=== PATIENT | female | born 1965 | race Caucasian/White ===

== ENCOUNTER 2017-10-01 18:44 | Emergency (ER) | payer MEDICAID ==
[~2017-10-01] VITALS: Ht 157.5 cm; Wt 100.3 kg
[2017-10-01] MEDS ORDERED: SIMV20TA5 PO (19:57)
[2017-10-01] MEDS ORDERED: NITR100C PO (19:57)
[2017-10-01] MEDS ORDERED: TRAZ-146 PO (19:57)
[2017-10-01] MEDS ORDERED: SYN0.088T PO (19:57)
[2017-10-01 19:58] LABS: CLARITY,URINE Turbid (Clear); COLOR,URINE Yellow (Yellow); GLUCOSE, URINE Negative (Neg); KETONES,URINE Negative (Neg); LEUKOCYTE ESTERASE ,URINE Negative (Neg); NITRITES, URINE Negative (Neg); OCCULT BLOOD,URINE Moderate (Neg); PROTEIN,URINE Negative (Neg)
[2017-10-01 20:07] LABS: BASOPHILS # (AUTO) 0.1 X10'3 (0-0.2); BASOPHILS % (AUTO) 0.6 % (0-1); EOSINOPHILS # (AUTO) 0.3 X10'3 (0-0.9); EOSINOPHILS % (AUTO) 2.6 % (0-6); HEMATOCRIT 39.9 % (35.0-45.0); HEMOGLOBIN 13.6 g/dl (12.0-16.0); LYMPHOCYTES # (AUTO) 2.8 X10'3 (1.1-4.8); LYMPHOCYTES % (AUTO) 23.6 % (21-51); MEAN CORPUSCULAR HEMOGLOBIN 31.3 PG (27.0-31.0); MEAN CORPUSCULAR HGB CONC 34.1 % (33.0-36.5); MEAN CORPUSCULAR VOLUME 91.8 FL (78-98); MEAN PLATELET VOLUME 8.1 FL (7.4-10.4); MONOCYTES # (AUTO) 0.9 X10'3 (0-0.9); MONOCYTES % (AUTO) 7.4 % (2-12); NEUTROPHILS # (AUTO) 7.8 X10'3 (1.8-7.7); NEUTROPHILS % (AUTO) 65.8 % (42-75); PLATELET COUNT 248 X10'3 (140-440); RED BLOOD COUNT 4.34 X10'6 (4.20-5.60); RED CELL DISTRIBUTION WIDTH 12.6 % (11.5-14.5); WHITE BLOOD COUNT 11.8 X10'3 (4.5-11.0)
[2017-10-01 20:09] LABS: UA COLLECTION TYPE CLN CATCH MIDSTREAM
[2017-10-01 20:10] LABS: BACTERIA,URINE FEW /HPF (Neg); SQUAMOUS EPITHELIAL CELL,UR FEW /LPF (FEW); WBC,URINE NONE SEEN /HPF (0-4)
[2017-10-01 20:13] LABS: AMORPHOUS PHOSPHATES 3+
[2017-10-01 20:15] LABS: INR 0.9 INR; PROTHROMBIN TIME 9.5 SECONDS (9.0-12.0)
[2017-10-01 20:17] LABS: OCCULT BLOOD STOOL NEGATIVE (Neg)
[2017-10-01] MEDS ORDERED: normal saline 1000ML IV soln IVB ONE (20:30)
[2017-10-01] MEDS ORDERED: ondansetron/PF 4mg/2ml inj IV ONE (20:30)
[2017-10-01] MEDS ORDERED: morphine 4 MG/ML inj SYRINge IV ONE (20:30)
[2017-10-01] MEDS ORDERED: ketorolac trometh. 30mg/ml inj. IV ONE (20:30)
[2017-10-01 20:31] LABS: ALANINE AMINOTRANSFERASE 24 U/L (12-78); ALBUMIN 3.9 G/DL (3.4-5.0); ALBUMIN/GLOBULIN RATIO 1.2 (1.1-1.5); AMYLASE 55 U/L (25-115); ANION GAP 10 (8-16); ASPARTATE AMINO TRANSFERASE 17 U/L (10-37); BILIRUBIN,TOTAL 0.4 MG/DL (0.1-1.0); BLOOD UREA NITROGEN 15 MG/DL (7-18); BUN/CREATININE RATIO 16.5 (6.6-38.0); CALCIUM 9.2 MG/DL (8.5-10.1); CHLORIDE 108 MMOL/L (99-107); CREATININE 0.91 MG/DL (0.40-0.90); GLUCOSE 120 MG/DL (70-104); LIPASE 206 U/L (73-393); POTASSIUM 3.3 MMOL/L (3.5-5.1); SODIUM 143 MMOL/L (135-145); TOTAL CARBON DIOXIDE 24.7 MMOL/L (24-32); TOTAL PROTEIN 7.1 G/DL (6.4-8.2); eGFR 65 ML/MIN
[2017-10-01 20:33] LABS: ALKALINE PHOSPHATASE 75 IU/L (46-116)
[2017-10-01] MEDS ORDERED: diphenhydrAMINE 50 mg/ml inj IV ONE (20:50)
[2017-10-01] MEDS ORDERED: diphenhydrAMINE 50 mg/ml inj ONE (20:51)
[2017-10-01] MEDS ORDERED: HYDROmorphone 1 mg/ml syringe IV ONE (22:00)
[2017-10-01] MEDS ORDERED: fentaNYL/PF 50MCG/1 ML 2ML syringe IV ONE (22:05)
[2017-10-01] MEDS ORDERED: HYDR-3965 PO (22:54)
[2017-10-01] MEDS ORDERED: IBUP-1984 PO (22:54)
[2017-10-01 23:08] VITALS: BP 148/78
== END 2017-10-01 23:10 | disposition home or self-care (01) ==
LOC: ER 18:45
DX: N23 Unspecified renal colic (principal); F17.200 Nicotine dependence, unspecified, uncomplicated; Z87.442 Personal history of urinary calculi; Z88.0 Allergy status to penicillin; Z88.5 Allergy status to narcotic agent; Z79.899 Other long term (current) drug therapy
CPT/HCPCS: 36415; 74176; 80053; 81001; 82150; 82272; 83690; 85025; 85610; 96361; 96374; 96375; 99285; J1200; J1885; J2270; J2405; J3010; J7030

== ENCOUNTER 2019-01-28 11:59 | Emergency (ER) | payer MEDICAID ==
[~2019-01-28] VITALS: Ht 157.5 cm; Wt 88.6 kg
[~2019-01-28 11:59] MED LIST: NITR100C PO; SIMV20TA5 PO; SYN0.088T PO; TRAZ-219 PO
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
[2019-01-28] MEDS ORDERED: CYCL-1 PO (14:12)
[2019-01-28 14:21] VITALS: BP 133/67
== END 2019-01-28 14:26 | disposition home or self-care (01) ==
LOC: ER 12:00
DX: S39.012A Strain of muscle, fascia and tendon of lower back, initial encounter (principal); R51 Headache; F17.200 Nicotine dependence, unspecified, uncomplicated; Z87.442 Personal history of urinary calculi; Z98.890 Other specified postprocedural states; Z88.0 Allergy status to penicillin; Z88.5 Allergy status to narcotic agent; Z79.899 Other long term (current) drug therapy; V49.9XXA Car occupant (driver) (passenger) injured in unspecified traffic accident, initial encounter; Y93.89 Activity, other specified; Y92.488 Other paved roadways as the place of occurrence of the external cause; Y99.8 Other external cause status
CPT/HCPCS: 99283

== ENCOUNTER 2022-10-26 14:38 | Emergency (ER) | payer MEDICAID ==
[~2022-10-26] VITALS: Ht 157.5 cm; Wt 100.0 kg
[~2022-10-26 14:38] MED LIST changes: +CYCL-1 PO; +SIMV-42 PO; -SIMV20TA5 PO; -TRAZ-219 PO; +TRAZ-256 PO
[2022-10-26 15:22] LABS: URINE HCG NEGATIVE (NEG)
[2022-10-26 15:40] LABS: BASOPHILS # (AUTO) 0.1 X10'3 (0-0.2); BASOPHILS % (AUTO) 0.8 % (0-1); EOSINOPHILS # (AUTO) 0.1 X10'3 (0-0.9); EOSINOPHILS % (AUTO) 1.1 % (0-6); HEMOGLOBIN 13.4 g/dl (12.0-16.0); LYMPHOCYTES # (AUTO) 2.2 X10'3 (1.1-4.8); LYMPHOCYTES % (AUTO) 30.2 % (21-51); MEAN CORPUSCULAR HEMOGLOBIN 31.6 PG (27.0-31.0); MEAN CORPUSCULAR HGB CONC 33.6 g/dL (33.0-36.5); MEAN CORPUSCULAR VOLUME 94.3 FL (78-98); MEAN PLATELET VOLUME 7.6 FL (7.4-10.4); MONOCYTES # (AUTO) 0.8 X10'3 (0-0.9); MONOCYTES % (AUTO) 10.9 % (2-12); NEUTROPHILS # (AUTO) 4.2 X10'3 (1.8-7.7); PLATELET COUNT 295 X10'3 (140-440); RED BLOOD COUNT 4.25 X10'6 (4.20-5.60); RED CELL DISTRIBUTION WIDTH 12.9 % (11.5-14.5); WHITE BLOOD COUNT 7.3 X10'3 (4.5-11.0)
[2022-10-26] MEDS ORDERED: ondansetron 4mg rapidly disintigrating tab PO ONE (16:05)
[2022-10-26] MEDS ORDERED: oxyCODONE/APAP 10/325mg tablet PO ONE (16:05)
[2022-10-26 16:09] LABS: ALANINE AMINOTRANSFERASE 16 U/L (12-78); ALBUMIN 3.7 G/DL (3.4-5.0); ALBUMIN/GLOBULIN RATIO 1.3 (1.1-1.5); ALKALINE PHOSPHATASE 89 IU/L (46-116); ANION GAP 12 (8-16); ASPARTATE AMINO TRANSFERASE 12 U/L (10-37); BILIRUBIN,TOTAL 0.4 MG/DL (0.1-1.0); BLOOD UREA NITROGEN 10 MG/DL (7-18); BUN/CREATININE RATIO 10.4 (10.0-20.0); CALCIUM 8.9 MG/DL (8.5-10.1); CHLORIDE 109 MMOL/L (99-107); CREATININE 0.96 MG/DL (0.40-0.90); GLUCOSE 135 MG/DL (70-104); LIPASE 128 U/L (73-393); POTASSIUM 3.4 MMOL/L (3.5-5.1); SODIUM 143 MMOL/L (135-145); TOTAL CARBON DIOXIDE 21.7 MMOL/L (24-32); TOTAL PROTEIN 6.6 G/DL (6.4-8.2); eGFR 60 ML/MIN
[2022-10-26] MEDS ORDERED: potassium Cl 20 mEq SR tablet PO ONE (16:55)
[2022-10-26] MEDS ORDERED: iohexol 300mg/ml 100ml inj. ONE (17:11)
[2022-10-26] MEDS ORDERED: normal saline 1000ML IV soln IVB ONE (18:30)
[2022-10-26 19:16] LABS: CLARITY,URINE SLIGHTLY CLOUDY (Clear); COLOR,URINE YELLOW (Yellow); GLUCOSE, URINE NEGATIVE (Neg); KETONES,URINE NEGATIVE (Neg); LEUKOCYTE ESTERASE ,URINE NEGATIVE (Neg); NITRITES, URINE NEGATIVE (Neg); OCCULT BLOOD,URINE MODERATE (Neg); PROTEIN,URINE NEGATIVE (Neg); UROBILINOGEN,URINE 0.2 E.U/dL (0.2-1.0)
[2022-10-26 19:21] LABS: UA COLLECTION TYPE CLN CATCH MIDSTREAM
[2022-10-26 19:24] LABS: AMORPHOUS PHOSPHATES 1+; BACTERIA,URINE FEW /HPF (Neg); MUCUS STRANDS FEW /LPF (Neg); RBC,URINE 20-50 /HPF (0-2); SQUAMOUS EPITHELIAL CELL,UR FEW /LPF (FEW); WBC,URINE 0-4 /HPF (0-4)
[2022-10-26] MEDS ORDERED: OXYC-145 PO (19:36)
[2022-10-26] MEDS ORDERED: ONDA4TAB12 PO (19:36)
[2022-10-26 19:38] VITALS: BP 121/77
== END 2022-10-26 19:50 | disposition home or self-care (01) ==
LOC: ER 14:38
DX: R10.32 Left lower quadrant pain (principal); R11.2 Nausea with vomiting, unspecified; Z87.442 Personal history of urinary calculi; Z98.890 Other specified postprocedural states; Z72.89 Other problems related to lifestyle; Z88.0 Allergy status to penicillin; Z88.5 Allergy status to narcotic agent; Z79.899 Other long term (current) drug therapy
CPT/HCPCS: 36415; 74177; 80053; 81001; 81025; 83690; 85025; 96360; 99285; J3490; J7030; Q9967

== ENCOUNTER 2024-01-20 10:44 | Emergency (ER) | payer MEDICAID ==
[~2024-01-20] VITALS: Ht 157.5 cm; Wt 93.9 kg
[~2024-01-20 10:44] MED LIST changes: +ONDA-243 PO; +OXYC-145 PO
[2024-01-20 11:17] LABS: BASOPHILS # (AUTO) 0.1 X10'3 (0-0.2); BASOPHILS % (AUTO) 0.7 % (0-1); EOSINOPHILS # (AUTO) 0.1 X10'3 (0-0.9); EOSINOPHILS % (AUTO) 1.2 % (0-6); HEMATOCRIT 44.1 % (35.0-45.0); HEMOGLOBIN 14.6 g/dl (12.0-16.0); LYMPHOCYTES # (AUTO) 2.6 X10'3 (1.1-4.8); MEAN CORPUSCULAR HGB CONC 33.1 g/dL (33.0-36.5); MEAN CORPUSCULAR VOLUME 93.8 FL (78-98); MEAN PLATELET VOLUME 8.3 FL (7.4-10.4); MONOCYTES # (AUTO) 0.8 X10'3 (0-0.9); MONOCYTES % (AUTO) 9.5 % (2-12); NEUTROPHILS # (AUTO) 4.4 X10'3 (1.8-7.7); NEUTROPHILS % (AUTO) 55.6 % (42-75); PLATELET COUNT 251 X10'3 (140-440); RED CELL DISTRIBUTION WIDTH 13.1 % (11.5-14.5)
[2024-01-20 11:28] LABS: BILIRUBIN,URINE SMALL (Neg); CLARITY,URINE SLIGHTLY CLOUDY (Clear); COLOR,URINE YELLOW (Yellow); GLUCOSE, URINE NEGATIVE (Neg); KETONES,URINE NEGATIVE (Neg); LEUKOCYTE ESTERASE ,URINE SMALL (Neg); NITRITES, URINE NEGATIVE (Neg); OCCULT BLOOD,URINE NEGATIVE (Neg); PROTEIN,URINE NEGATIVE (Neg); UROBILINOGEN,URINE 0.2 E.U/dL (0.2-1.0)
[2024-01-20 11:32] LABS: UA COLLECTION TYPE CLN CATCH MIDSTREAM
[2024-01-20 11:32] LABS: ALANINE AMINOTRANSFERASE 29 U/L (12-78); ALBUMIN 3.8 G/DL (3.4-5.0); ALBUMIN/GLOBULIN RATIO 1.1 (1.1-1.5); ALKALINE PHOSPHATASE 92 IU/L (46-116); ANION GAP 8 (8-16); ASPARTATE AMINO TRANSFERASE 18 U/L (10-37); BILIRUBIN,TOTAL 0.4 MG/DL (0.1-1.0); BLOOD UREA NITROGEN 14 MG/DL (7-18); BUN/CREATININE RATIO 15.6 (10.0-20.0); CALCIUM 9.4 MG/DL (8.5-10.1); CHLORIDE 107 MMOL/L (99-107); GLUCOSE 104 MG/DL (70-104); LIPASE 46 U/L (16-77); POTASSIUM 3.6 MMOL/L (3.5-5.1); SODIUM 138 MMOL/L (135-145); TOTAL CARBON DIOXIDE 23.4 MMOL/L (24-32); TOTAL PROTEIN 7.2 G/DL (6.4-8.2); eCRCL 55 ML/MIN; eGFR 65 ML/MIN
[2024-01-20 11:34] LABS: RBC,URINE NONE SEEN /HPF (0-2); URINE HCG NEGATIVE (NEG); WBC,URINE 50-100 /HPF (0-4)
[2024-01-20 11:35] LABS: BACTERIA,URINE 2+ /HPF (Neg); MUCUS STRANDS MODERATE /LPF (Neg); SQUAMOUS EPITHELIAL CELL,UR MODERATE /LPF (FEW)
[2024-01-20 11:36] LABS: CAL OXALATE CRYSTALS 2+ /HPF (NEGATIVE); WBC CLUMPS,URINE MODERATE /HPF (NEGATIVE)
[2024-01-20] MEDS ORDERED: iohexol 300mg/ml 100ml inj. ONE (12:56)
[2024-01-20 16:21] VITALS: BP 144/124; PULSE 73; RESP 16; TEMP 97.9; O2SAT 98
== END 2024-01-20 16:25 | disposition home or self-care (01) ==
LOC: ER 10:45
DX: K57.30 Diverticulosis of large intestine without perforation or abscess without bleeding (principal); R10.30 Lower abdominal pain, unspecified; R10.32 Left lower quadrant pain; R10.31 Right lower quadrant pain; Z87.442 Personal history of urinary calculi; Z87.440 Personal history of urinary (tract) infections; Z72.89 Other problems related to lifestyle; Z88.0 Allergy status to penicillin; Z88.6 Allergy status to analgesic agent; Z79.899 Other long term (current) drug therapy; Z98.891 History of uterine scar from previous surgery; Z98.890 Other specified postprocedural states
CPT/HCPCS: 36415; 74177; 80053; 81001; 81025; 83690; 85025; 87088; 99285; Q9967